=== PATIENT | male | born 1990 | race African-American/Black ===

== ENCOUNTER 2019-04-14 08:22 | Emergency (ER) | payer SELFPAY ==
[~2019-04-14] VITALS: Ht 188 cm; Wt 86.8 kg
[2019-04-14 08:24] VITALS: BP 117/42
[2019-04-14] MEDS ORDERED: CEFTRIAXONE 250 MG ONE (08:53)
[2019-04-14] MEDS ORDERED: LIDOCAINE-MPF 1%, 2ML ONE (08:53)
[2019-04-14] MEDS ORDERED: AZITHROMYCIN 500 MG TABLET ONE (08:54)
[2019-04-14] MEDS ORDERED: AZITHROMYCIN 500 MG TABLET PO ONE (09:00)
[2019-04-14] MEDS ORDERED: CEFTRIAXONE 250 MG IM ONE (09:00)
--- NOTE | 2019-04-14 09:03 | NUR ---
BREAK RN: PT MED NOTED. URINE COLLECTED AND SENT TO LAB. CALL LIGHT W/I REACH
--- NOTE | 2019-04-14 09:41 | NUR ---
Patient given discharge instructions and they have confirmed that they understand the instructions. Patient ambulatory with steady gait.
== END 2019-04-14 09:46 | disposition home or self-care (01) ==
LOC: ED 08:45
DX: A56.01 Chlamydial cystitis and urethritis (principal)
CPT/HCPCS: 87491; 87591; 96372; 99283; J0696